=== PATIENT | male | born 1970 | race African-American/Black ===

== ENCOUNTER 2018-05-05 19:39 | Emergency (ER) | payer MEDICAID ==
[~2018-05-05] VITALS: Ht 177.8 cm; Wt 56.8 kg
[~2018-05-05 19:39] MED LIST: DIVA-78 PO; NALT50TA6 PO; OMEP10SU2 PO; PHENY100 PO; QUET100T33 PO
[2018-05-05 22:31] VITALS: BP 128/81
== END 2018-05-05 23:14 | disposition home or self-care (01) ==
LOC: EMS 19:40
DX: F15.10 Other stimulant abuse, uncomplicated (principal); J44.9 Chronic obstructive pulmonary disease, unspecified; F17.210 Nicotine dependence, cigarettes, uncomplicated; Z88.0 Allergy status to penicillin; Z88.1 Allergy status to other antibiotic agents; Z79.899 Other long term (current) drug therapy